=== PATIENT | male | born 1970 | race Caucasian/White ===

== ENCOUNTER 2020-09-06 12:20 | Outpatient (CLI) | payer OTHER, SELFPAY | END 2020-09-06 12:21 | disposition home or self-care (01) | PROVIDERS: PCP Family Medicine; Visit Provider Family Medicine | DX: H93.19 Tinnitus, unspecified ear (principal) | CPT/HCPCS: 92557; 92567 ==

== ENCOUNTER 2022-05-16 11:30 | Emergency (ER) | payer OTHER, SELFPAY ==
[2022-05-16 11:37] VITALS: BP 144/84; PULSE 72; RESP 18; TEMP 36.3; O2SAT 98
--- NOTE | 2022-05-16 12:29 | ED.URI ---
HPI - URI/Sore Throat General Chief Complaint: Upper Respiratory Infection Stated Complaint: Sore Throat Source: patient Mode of arrival: ambulatory History of Present Illness HPI Narrative: This is a 51-year-old male who presented to urgent care with complaints of a sore throat that started on Saturday patient describes a sore throat as razor blades cutting his throat if he swallowed or ate his food. Patient did not do anything at home to relieve his symptoms. The patient denies SOB, CP, palpitation, extremity numbness, lightheadedness, dizziness, constipation, diarrhea, chills, or fever. Related Data Home Medications Medication Instructions Recorded Confirmed aspirin 81 mg tablet,delayed 81 mg PO DAILY 06/08/19 05/16/22 release vit C 250 mg-vit E 90 mg-zinc 40 1 tablet PO BID 06/08/19 05/16/22 mg-copper 1 [id number] capsule (PreserVision AREDS-2) Allergies Allergy/AdvReac Type Severity Reaction Status Date / Time No Known Allergies Allergy Verified 05/16/22 11:41 Review of Systems Review of Systems: A 14 organ system Review of Systems was performed and pertinent positives included in the HPI, otherwise remaining ROS is negative. [facility] Family History Family History Mother Cerebrovascular accident Other Diabetes mellitus Family history of cardiovascular disease Hypertension Social History Social History Social History: Smoking packs per day: 1 Smoking cigarettes per day: 20.0 Years smoked: 24 Smoking pack-years: 24.00 Smoking status: Former smoker Tobacco type: cigarettes Second hand tobacco smoke exposure: No Smoking end date: 08/05/13 Alcohol intake: current Drinks per week: 10 Substance use: never Substance use type: does not use Gender identity (if verbalized by the patient): Male Sexual Orientation (if Verbalized by the Patient): Straight or Heterosexual Exam Narrative: GENERAL: This is a well-nourished, well-developed patient, in no apparent distress. HEAD: normocephalic, atraumatic. EYES: PERRL. Sclera clear/white. Vision is grossly intact. EARS: External ears normal, auditory canals clear and without drainage, TMs normal without perforation. Hearing grossly intact. NOSE: External nose normal with no obvious nasal discharge, nares without redness, no rhinorrhea. THROAT: Mucous membranes moist, posterior pharynx with edema erythema and a large tonsil NECK: Neck supple, non-tender without lymphadenopathy, masses or thyromegaly. CARDIOVASCULAR: Regular rate and rhythm without murmurs, gallops, or rubs. RESPIRATORY: Clear to auscultation. Breath sounds equal bilaterally. No wheezes, rales, or rhonchi. GASTROINTESTINAL: Abdomen soft, non-tender, nondistended. Bowel sounds are active. No hepato-splenomegaly, or palpable masses. No guarding. SKIN: warm, intact with no suspicious lesions or rash, good texture and turgor. NEURO: awake, alert, and oriented to person, place and time. There were no obvious focal neurologic abnormalities. EXTREMITIES: Normal range of motion. No edema. No calf tenderness. Course Course Emergency Course: Patient will discharge home with Augmentin for the treatment of pharyngitis and throat culture sent Level of Care: Express Care Visit Vital Signs Vital signs: Vital Signs Temperature 97.3 F L 05/16/22 11:37 Pulse Rate 72 05/16/22 11:37 Respiratory Rate 18 05/16/22 11:37 Blood Pressure 144/84 H 05/16/22 11:37 Pulse Oximetry 98 05/16/22 11:37 Oxygen Delivery Room Air 05/16/22 11:37 Temperature 97.3 F L 05/16/22 11:37 Pulse Rate 72 05/16/22 11:37 Respiratory Rate 18 05/16/22 11:37 Blood Pressure 144/84 H 05/16/22 11:37 Pulse Oximetry 98 05/16/22 11:37 Oxygen Delivery Room Air 05/16/22 11:37 MDM - URI/Sore Throat Differential Diagnosis Differential d
== END 2022-05-16 12:32 | disposition home or self-care (01) ==
PROVIDERS: Emergency Provider Nurse Practitioner; PCP Family Medicine
DX: J02.9 Acute pharyngitis, unspecified (principal); Z87.891 Personal history of nicotine dependence
CPT/HCPCS: 87081; 87880; 99213; G0463

== ENCOUNTER 2022-12-05 08:43 | Emergency (ER) | payer OTHER, SELFPAY ==
[2022-12-05] VITALS (12 sets, daily range): BP systolic 164–189; BP diastolic 92–100; PULSE 66–82; RESP 16–21; TEMP 36.4; O2SAT 94–98
--- NOTE | ~2022-12-05 | XR_ITS ---
Clinical Indication: Hypertension, dizziness PA and lateral views of the chest: Comparison: None Findings: Calcified left upper lobe granuloma noted. The lungs are otherwise clear, without evidence of focal consolidation or pleural effusion. Cardiomediastinal silhouette is within normal limits. Paxton josselin and soft tissues are unremarkable. Impression: No significant abnormality seen. Reviewed, dictated and finalized at location . Impression: No significant abnormality seen.
--- NOTE | ~2022-12-05 | CT_ITS ---
Non-contrast Head CT History: Dizziness, ataxia Technique: Axial non-contrast imaging of the brain was performed. Dose reduction technique was used on this scan by utilizing automated exposure control and iterative reconstruction technique. The dose -length product (DLP) was 605.33 mGy-cm. Findings: There is no evidence of intracranial hemorrhage, mass lesion, or acute infarct. Brain par enchyma appears normal. The ventricles and subarachnoid spaces are normal in size. The calvarium ap pears normal. The visualized paranasal sinuses and mastoid air cells are clear. Impression: No significant abnormality seen. Reviewed, dictated and finalized at location . Impression: No significant abnormality seen.
--- NOTE | 2022-12-05 08:51 | ECG_ITS ---
Measurements Intervals [place] Rate: 78 P: 54 [place]: 169 QRS: 31 QRSD: 73 T: 70 QT: 361 QTc: 413 Interpretive Statements SINUS RHYTHM NORMAL ECG NO PREVIOUS ECG AVAILABLE FOR COMPARISON Electronically Signed On 12-05-2022 9:33:25 CDT by Edmond James D.O.
[2022-12-05 09:09] LABS: Basophils Percent Auto 0.6 % (0.2-1.2); Eosinophils Absolute Auto 0.1 K/mm3 (0-0.3); Eosinophils Percent Auto 1.9 % (0-4.4); Hematocrit 43.9 % (42.0-52.0); Hemoglobin 14.9 g/dL (14.0-18.0); Immature Granulocyte Absolute 0.01 K/mm3 (0.00-0.031); Immature Granulocyte Percent A 0.2 % (0-0.5); Immature Platelet Fraction Pct 4.9 % (0.9-11.2); Lymphocytes Absolute Auto 1.18 K/mm3 (0.9-3.2); Mean Corpuscular HGB Conc 33.9 g/dl (32-36); Mean Corpuscular Hemoglobin 31.2 pg (26-34); Mean Platelet Volume 10.2 fl (7.4-10.4); Monocytes Absolute Auto 0.3 K/mm3 (0.1-0.6); Monocytes Percent Auto 5.2 % (2.6-8.5); Neutrophils Absolute Auto 3.8 K/mm3 (1.3-6.7); Neutrophils Percent Auto 70.1 % (45.5-73.1); Platelet Count Result 140 k/mm3 (150-375); Red Blood Count 4.77 M/mm3 (4.6-6.20); Red Cell Distribution Width 12.1 % (11.5-14.5); White Blood Count 5.4 K/mm3 (4.5-10.0)
[2022-12-05 09:18] LABS: Alanine Aminotransferase 84 U/L (6-50); Albumin Level 4.8 g/dL (3.5-5.1); Alkaline Phosphatase 90 U/L (38-126); Anion Gap 9 mmol/L (8-16); Aspartate Amino Transferase 87 U/L (17-59); Bilirubin,Total 0.6 mg/dL (0.2-1.3); Blood Urea Nitrogen 14 mg/dL (9-20); Calcium 9.3 mg/dL (8.4-10.2); Carbon Dioxide 28 mmol/L (22-30); Chloride 101 mmol/L (98-107); Estimated CRCL calculation 158 ml/min; Estimated Glomerular Filt Rate > 60; Glucose 166 mg/dL (65-110); Lipase 168 U/L (23-300); Potassium 4.8 mmol/L (3.4-5.0); Sodium 138 mmol/L (137-145)
[2022-12-05 09:23] LABS: INR 0.9; Prothrombin Time 12.9 Seconds (11.1-14.7)
[2022-12-05 09:24] LABS: Partial Thromboplastin Time 29.8 SECONDS (22.3-36.8)
[2022-12-05 09:28] LABS: Troponin I < 0.012 ng/mL (0.000-0.034)
[2022-12-05] MEDS: LOSARTAN POTASSIUM 100 MG TABLET PO (09:51)
[2022-12-05] MEDS: MECLIZINE HCL 25 MG TABLET PO (09:51)
--- NOTE | 2022-12-05 10:51 | ED.DIZZY ---
HPI - Dizziness General Chief Complaint: Dizziness Stated Complaint: dizziness Time Seen by Provider: 12/05/22 08:50 History of Present Illness HPI Narrative: Patient presents with dizziness, he states that started about 630 this morning while he was at work, it almost feels like he is drunk and he is unable to walk without stumbling, it is much better when he sits down, no nausea or vomiting associated with this, no pain to his ears. He does state that he used to be in the [employer] and the feeling is kind of like that seasickness. No history of stroke, he has no difficulty or changes with his speech, no focal numbness or weakness. His blood pressure has also been high, he ran out of one of his blood pressure medications a few days ago and has been trying to get a refill of it. Related Data Home Medications Medication Instructions Recorded Confirmed aspirin 81 mg tablet,delayed 81 mg PO DAILY 06/08/19 12/04/22 release vit C 250 mg-vit E 90 mg-zinc 40 1 tablet PO BID 06/08/19 12/04/22 mg-copper 1 [id number] capsule (PreserVision AREDS-2) Allergies Allergy/AdvReac Type Severity Reaction Status Date / Time No Known Allergies Allergy Verified 12/05/22 08:52 Review of Systems Review of Systems: CONST: No fever. HEENT: No sore throat C/V: No chest pain RESP: No cough GI: No nausea/vomiting : No dysuria. M/S: No joint pain. SKIN: No rash. NEURO: [Dizziness without headache or focal numbness or weakness] PSYCH: [No depression] [facility] Past Medical History Medical History Diabetes Diabetes mellitus with nephropathy Dyslipidemia High cholesterol HTN (hypertension) Obesity BRITTNY (obstructive sleep apnea) Surgical History Surgical History H/O local excision of skin lesion Family History Family History Mother Cerebrovascular accident Other Diabetes mellitus Family history of cardiovascular disease Hypertension Social History Social History Social History: Smoking packs per day: 1 Smoking cigarettes per day: 20.0 Years smoked: 24 Smoking pack-years: 24.00 Smoking status: Former smoker Tobacco type: cigarettes Second hand tobacco smoke exposure: No Smoking end date: 08/05/13 Alcohol intake: current Drinks per week: 10 Alcohol use details: occasionally Substance use: never Substance use type: does not use Living arrangements: with family Occupation/Education: occupation Gender identity (if verbalized by the patient): Male Sexual Orientation (if Verbalized by the Patient): Straight or Heterosexual Spiritual care concerns: No Exam Narrative: EXAMINATION OF ORGAN SYSTEMS/BODY AREAS: Constitutional: Vital signs per nursing GENERAL:[No acute distress, non-toxic appearing.] HEAD: Normal with no signs of head trauma. EYES: EOMI, conjunctiva normal ENT: Hearing grossly intact LUNGS: Nonlabored breathing. HEART: [Regular rate and rhythm] ABD: [Soft], [nontender to palpation] EXT: Normal range of motion SKIN: [No rashes or lesions.] NEURO: [Alert and oriented x 3. No gross focal sensory or strength deficits.] Initial gait somewhat unsteady PSYCH: Normal affect Course Vital Signs Vital signs: Vital Signs Temperature 97.6 F 12/05/22 08:46 Pulse Rate 80 12/05/22 08:46 Respiratory Rate 16 12/05/22 08:46 Blood Pressure 189/99 H 12/05/22 08:46 Pulse Oximetry 98 12/05/22 08:46 Oxygen Delivery Room Air 12/05/22 08:46 Temperature 97.6 F 12/05/22 08:46 Pulse Rate 75 12/05/22 10:58 Respiratory Rate 18 12/05/22 10:58 Blood Pressure 164/92 H 12/05/22 10:58 Pulse Oximetry 97 12/05/22 10:58 Oxygen Delivery Room Air 12/05/22 08:46 MDM - Dizziness MDM Narrative Medical decision making narrativ
== END 2022-12-05 11:04 | disposition home or self-care (01) ==
PROVIDERS: Emergency Provider Emergency Medicine; PCP Family Medicine
DX: R42 Dizziness and giddiness (principal); I10 Essential (primary) hypertension; E11.21 Type 2 diabetes mellitus with diabetic nephropathy; E78.00 Pure hypercholesterolemia, unspecified; G47.33 Obstructive sleep apnea (adult) (pediatric); E66.9 Obesity, unspecified; Z68.37 Body mass index [BMI] 37.0-37.9, adult; Z87.891 Personal history of nicotine dependence; Z79.82 Long term (current) use of aspirin; Z79.85 Long-term (current) use of injectable non-insulin antidiabetic drugs
CPT/HCPCS: 36415; 70450; 71046; 80053; 83690; 84484; 85025; 85055; 85610; 85730; 93005; 99284; A9270

== ENCOUNTER 2023-02-07 12:15 | Outpatient (CLI) | payer OTHER, SELFPAY ==
--- NOTE | ~2023-02-07 | XR_ITS ---
Right wrist Technique: PA, oblique, lateral, and ulnar deviation views were obtained. Clinical History: Ganglion cyst Findings: No acute fracture or dislocation is seen. Osseous alignment is anatomic. Joint spaces are p reserved. Soft tissues are unremarkable. Impression: Unremarkable right wrist radiographs. Reviewed, dictated and finalized at location . Impression: Unremarkable right wrist radiographs.
== END 2023-02-07 12:16 | disposition home or self-care (01) ==
PROVIDERS: PCP Family Medicine; Visit Provider Physician Assistant
DX: R22.31 Localized swelling, mass and lump, right upper limb (principal); M67.439 Ganglion, unspecified wrist
CPT/HCPCS: 73110

== ENCOUNTER 2023-02-13 12:27 | Outpatient (CLI) | payer OTHER, SELFPAY ==
--- NOTE | ~2023-02-13 | US_ITS ---
EXAMINATION: US soft tissue UE RT DATE: 02/13/2023 12:55 INDICATION: Localized swelling, mass and lump, right wrist. TECHNIQUE: Multiple grayscale and Doppler ultrasound images of the right upper extremity were obtaine d. COMPARISON: Right wrist radiograph 02/07/2023 FINDINGS: An 8 x 6 x 8 mm ganglion cyst and a 7 x 5 x 6 mm ganglion cyst are connected by a thin comm unication in the dorsum of the wrist. IMPRESSION: 1. Ganglion cysts in the dorsum of the wrist in the patient's area of concern. Reviewed, dictated and finalized at location E.
== END 2023-02-13 12:28 | disposition home or self-care (01) ==
PROVIDERS: PCP Family Medicine; Visit Provider Physician Assistant
DX: M67.431 Ganglion, right wrist (principal)
CPT/HCPCS: 76882

== ENCOUNTER 2024-02-17 12:56 | Outpatient (CLI) | payer OTHER, SELFPAY ==
--- NOTE | ~2024-02-17 | CT_ITS ---
CT soft tissue neck w con Ordering provider: Matheus Cabello PA-C History: 53 years Male with . r/o abscess or other complications . Comparison: None. Technique: CT soft tissues neck was performed with contrast. . Automated exposure control and iterat blue reconstruction technique were employed. The dose-length product was 560.19 mGy-cm. 75 mL of Omnip aque 350 was given IV. Findings: LOWER HEAD: The visualized brain parenchyma, optic globes/orbits and mastoids are normal. The visua lized paranasal sinuses are well aerated. SALIVARY GLANDS: Normal. THYROID: Normal. SUPRAHYOID DEEP SPACES: Enlarged lymph nodes in the parapharyngeal area more on the left side measuri ng 1.3 x 1.4 cm. CAROTID ARTERIES: Normal. JUGULAR VEINS: Normal. TONSILS: The left tonsil is enlarged with area of calcification. No definite abscess formation is see n although hypodensity is seen in the mid tonsil which measures 6 mm and may be an early abscess.. ORAL CAVITY: Partially obscured by dental amalgam but normal as visualized. PHARYNX, LARYNX AND TRACHEA: Patent and normal. No prevertebral soft tissue swelling. SUPERFICIAL SOFT TISSUES: Normal. No lymphadenopathy or neck mass. Small lymph nodes are seen bilater ally. THORACIC INLET/VISUALIZED UPPER CHEST: Normal. SKELETAL: Age appropriate degenerative changes. IMPRESSION: 1. Enlarged left tonsil with possible small abscess. Follow-up advised. 2. Enlarged lymph nodes in the left and right parapharyngeal spaces. Reviewed, dictated and finalized at location A.
== END 2024-02-17 12:57 | disposition home or self-care (01) ==
PROVIDERS: PCP Family Medicine; Visit Provider Physician Assistant
DX: K13.79 Other lesions of oral mucosa (principal); J35.1 Hypertrophy of tonsils; J02.9 Acute pharyngitis, unspecified
CPT/HCPCS: 70491; Q9967

== ENCOUNTER 2024-05-12 12:49 | Outpatient (CLI) | payer OTHER, SELFPAY ==
--- NOTE | ~2024-05-12 | XR_ITS ---
XR shoulder LT min 2V Ordering provider: Kt Sheldon MD History: . M25.511 - Pain in right shoulder . Comparison: None. 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 Small bony fragme nt seen near to the inferior glenoid may be old or acute fracture. JOINT SPACES: The acromioclavicular joint is normal. The glenohumeral joint is normal. SOFT TISSUES: Normal. IMPRESSION: Small bony fragment near to the inferior glenoid may be a small chip fracture. Clinical correlation a dvised. 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 Reviewed, dictated and finalized at location A. IMPRESSION: Small bony fragment near to the inferior glenoid may be a small chip fracture. Clinical correlation advised. 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
--- NOTE | ~2024-05-12 | XR_ITS ---
XR shoulder RT min 2V Ordering provider: Kt Sheldon MD History: . M25.511 - Pain in right shoulder . Comparison: June 21, 2017 FINDINGS: BONES: No acute fracture or dislocation. JOINT SPACES: The acromioclavicular joint shows mild osteoarthritic changes. The glenohumeral joint i s normal. SOFT TISSUES: Normal. IMPRESSION: No acute osseous abnormality right shoulder. Reviewed, dictated and finalized at location A.
== END 2024-05-12 12:50 | disposition home or self-care (01) ==
PROVIDERS: PCP Family Medicine; Visit Provider Family Medicine
DX: M85.08 Fibrous dysplasia (monostotic), other site (principal); M25.511 Pain in right shoulder; M25.512 Pain in left shoulder
CPT/HCPCS: 73030

== ENCOUNTER 2024-12-15 10:04 | Outpatient (CLI) | payer OTHER, SELFPAY ==
--- NOTE | ~2024-12-15 | XR_ITS ---
3 VIEWS LUMBAR SPINE Ordering provider: Felicita Garza PA-C History: . M54.50 - Low back pain, unspecified, NO INJURY . Comparison: None. FINDINGS: VERTEBRAL BODIES: No visible fracture or subluxation. Degenerative changes of the spine. Mild dextros coliosis. DISK SPACES: Normal. SOFT TISSUES: Normal. IMPRESSION: No acute osseous abnormality lumbar spine. Reviewed, dictated and finalized at location A.
--- OUTSIDE RECORDS SUMMARY | 2024-12-15 10:19 | XMS_ITS | Continuity of Care Document ---
Author Name [facility] Organization [facility] Care Team Providers Care Pastry Artist Name Role Phone [facility] Unavailable Unavailable Problems Combined list of problems from Department of Defense and Veterans Affairs facilities. It does not include entries that were removed or entered in error. Problem Status Onset Date Problem Type Date of Resolution Comments Source IMPAIRED FASTING GLUCOSE Active Condition DoD visit for: services physical chcf Active Condition DoD ASTIGMATISM - REGULAR Active Condition DoD Anticipatory Guidance: Inadequate Physical Activity Active Condition DoD Body Mass Index Active Condition DoD Dietary Counseling Pertaining To Hypercholesterolemia Active Condition DoD Blood Pressure Isolated Elevated Active Condition DoD visit for: administrative purpose Active Condition Do D Vaccines Prophylactic Need Against DTP Active Condition DoD Patient Education - Self-Examination Of Testes Inactive Condition DoD Patient Education - Dietary Active Condition DoD HYPERLIPIDEMIA Active Condition DoD tobacco use Active Condition DoD visit for: services physical Active Condition DoD 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 Continue current regimen and F/U with PCM for routine monitoring, particularly with respect to LDL goal. Okay to participate in upcoming PRT cycle. DoD visit for: issue repeat prescription for medication Inactive Condition DoD NICOTINE DEPENDENCE - IN REMISSION Active Condition Rx given of Nicoderm 14mg topical patch apply qd x 14days & continue Zyban 150mg PO BID DoD smoking cigarettes Active Condition DoD NICOTINE DEPENDENCE - CONTINUOUS Active Condition Continue Zyban 150mg Po BID; will start Pt. on Step#2 program of Nicoderm topical 21mg apply patch QD x 2 weeks (disp#14 w/o refills) DoD Need For Vaccination Yellow Fever Inactive Condition DoD NORMAL ROUTINE OPHTHALMOLOGICAL EXAM Inactive Condition DoD Vaccines Prophylactic Need Against Influenza Inactive Condition Do D DERMATOMYCOSIS Active Condition Tenia infection DoD visit for: screening exam pulmonary tuberculosis Active Condition DoD Need For Vaccination Typhoid Inactive Condition DoD DERMATOPHYTOSIS NAILS ONYCHOMYCOSIS Inactive Condition DoD HISTOPLASMOSIS OCULAR Active Condition DoD ASTIGMATISM Active Condition DoD NEW PATIENT OPHTHALMOLOGICAL EXAM Inactive Condition DoD REFRACTIVE ERROR - HYPERMETROPIA Active Condition [facility] Patient Counseling: Inactive Condition D oD UPPER RESPIRATORY INFECTION Inactive Condition Sudafed and Motrin not dispensed, Rx from another pt as per previous note. Was dispensed Deconsal II, Tessalon and Afrin vs Afrin, Ibu and Sudafed. DoD visit for: administrative purpose Active Condition Consu lt for Vasectomy submitted via [facility] 1 unable to send through [facility] II. DoD Medications Combined list of outpatient medications from Department of Defense and Veterans Affairs facilities.Medications provided include 1) outpatient medications from the last 15 months, and 2) patient-reported medications. Medication Details Route Status Patient Instructions Prescription Expires Prescription Number Last Dispense Date Ordering Provider Order Date Order Qty Source amLODIPine 10 mg tablet See Instruct ions, # 90 EA, 1 total refill(s ), Acute Complet ed 04/29/2023 3 2022 90.0 Ambulat ory Pharmac y amLODIPine 10 mg tablet 10 mg, Oral, Daily, # 90 EA, 3 total refill(s ), Hard Stop Oral (given by mouth) Complet ed 06/16/2024 4 2023 90.0 Ambulat ory Pharmac y atorvastati n 40 mg tablet 40 mg, Oral, Daily, # 90 EA, 3 total refill(s ), Hard Stop Oral (given by mouth) Complet ed 06/16/2024 4 2023 90.0 Ambulat ory Pharmac y atorvastati n 40 mg tablet See Instruct ions, # 90 EA, 1 total refill(s ), Acute Complet ed 04/29/2023 3 2022 90.0 Ambulat ory Pharmac y Dulaglutide 6 mg/mL, Injection, 0.5mL Autoinjecto r refriger ate 11/18/2024 [id number] 4 2023 6 [facility] Yunior BAZAN [place] ezetimibe 10 mg oral tablet TAKE ONE TABLET DAILY, # 90 EA, 3 total refill(s ), Acute Complet ed 06/07/20232022 90.0 Ambulat ory Pharmac y ezetimibe 10 mg tablet See Instruct orquidea, # 90 EA, 1 total refill(s ), Acute Complet ed 04/29/2023 3 2022 90.0 Ambulat ory Pharmac y ezetimibe 10 mg tablet 10 mg, Oral, Daily, # 90 EA, 3 total refill(s ), Hard Stop Oral (given by mouth) Complet ed 06/16/2024 4 2023 90.0 Ambulat ory Pharmac y losartan 100 mg tablet See Instruct ions, # 90 EA, 1 total refill(s ), Acute Complet ed 04/29/2023 3 2022 90.0 Ambulat ory Pharmac y losartan 100 mg tablet 100 mg, Oral, Daily, # 90 EA, 3 total refill(s ), Hard Stop Oral (given by mouth) Complet ed 06/16/2024 4 2023 90.0 Ambulat ory Pharmac y metFORMIN 500 mg oral tablet TAKE TWO TABLETS BY MOUTH TWICE A DAY, # 360 EA, 3 total refill(s ), Acute Complet ed 04/29/2023 2 2022 360.0 Ambulat ory Pharmac y metoprolol succinate ER 25 mg/24 hour tablet See Instruct ions, # 90 EA, 1 total refill(s ), Acute Complet ed 08/22/2023 3 2023 90.0 Ambulat ory Pharmac y metoprolol succinate ER 25 mg/24 hour tablet 25 mg, # 45 EA, 3 total refill(s ), Hard Stop Complet ed 06/16/2024 3 2023 45.0 Ambulat ory Pharmac y SPIKEVAX [id number] (COVID vacc 2022- (12 yrs and up) XBB.1.5 (andusomera n)/PF), 50 MCG/0.5, VIAL, INTRAMUSC, MODERNA US, INC, .5 ml VIAL Active [id number] 4 2023 0.5 Pharmac y Data Transac tion Service Facilit y Trulicity Pen 3 mg/0.5 mL [4EA=2mL] See Instruct orquidea, SubCutan eous, every week, # 6 mL, 1 total refill(s ), Hard Stop Notes: refriger ate SubCut aneous (under the skin) Discont inued 01/06/2024 4 2023 6.0 Ambulat ory Pharmac y Trulicity Pen 4.5 mg/0.5 mL [4EA=2mL] See Instruct ions, # 6 mL, 1 total refill(s ), Hard Stop Notes: refriger ate Complet ed 06/09/2024 4 2023 6.0 Ambulat ory Pharmac y Trulicity Pen 4.5 mg/0.5 mL [4EA=2mL] See dose instruct ions in comments , # 2 mL, 5 total refill(s ), Acute Complet ed 12/20/2023 3 2023 2.0 Ambulat ory Pharmac y Allergies, Adverse Reactions, Alerts Combined list of allergies from Department of Defense and Veterans Affairs facilities. It does not include entries that were removed or entered in error. Substance Category Reaction Severity Reaction type Status Date Reported Comments Source No Known Allergies Drug allergy (disorder) active 8 [facility] NO KNOWN ALLERGIES Propensity to adverse reactions to drug Active Unknown Organization Immunizations Combined list of available immunizations from the Department of Defense and Veterans Affairs facilities. Immunization Series Date Given Administered By Site Reaction Lot Number CVX Code Drug Superintendent Distribution Status Comments Source COVID-19, mRNA, LNP-S, PF, 100 mcg or 50 mcg dose 2021 ALUL, () Not Given COVID-19, mRNA, LNP-S, PF, 100 mcg or 50 mcg dose [facility] COVID-19 (MODERNA), MRNA, LNP-S, PF, 100 MCG/0.5 ML DOSE 3 2020 207 complet ed MOD; [id number]; 2 [facility] COVID-19 (MODERNA), MRNA, LNP-S, PF, 100 MCG/0.5 ML DOSE 2 2020 207 complet ed MOD; [id number]; 1 [facility] COVID-19 (MODERNA), MRNA, LNP-S, PF, 100 MCG/0.5 ML DOSE 1 2020 207 complet ed MOD; [id number]; 1 [facility] influenza virus vaccine, whole virus 2008 zzLef t Arm [id number] complet ed influenza virus vaccine, whole virus 05/24/09 Given Ambulat ory Pharmac y influenza virus vaccine, whole virus 1 2008 Unknown, Provider [id number] 16 [employer] ([employer]) complet ed influenza virus vaccine, whole virus DoD tetanus, diphtheria, acellular pertu is 2007 zzLef t Arm [id number] Unknown complet ed tetanus, diphtheri a, acellular pertussis 06/01/08 Given Ambulat ory Pharmac y influenza virus vaccine, live 2007 zzLef t Arm [id number] [employer] complet ed influenza virus vaccine, live 06/01/08 Given Ambulat ory Pharmac y tuberculin skin test; old tuberculin, multipuncture device 1 2007 SATHYA LEWIS [id number] Other (OTH) complet ed tuberculi n skin test; old tuberculi n, multipunc ture device DoD influenza virus vaccine, live, attenuated, for intranasal use 1 2007 SATHYA LEWIS [id number] [employer]. (MED) complet ed influenza virus vaccine, live, attenuate d, for intranasa l use DoD tetanus toxoid, reduced diphtheria toxoid, and acellular pertu is vaccine, adsorbed 1 2007 SATHYA LEWIS [id number] Other (OTH) complet ed tetanus toxoid, reduced diphtheri a toxoid, and acellular pertussis vaccine, adsorbed DoD yellow fever vaccine 2005 zzLef t Arm [id number] sanofi pasteur complet ed yellow fever vaccine 05/07/06 Given Ambulat ory Pharmac y tuberculin purified protein derivative 2005 zzLef t Arm [id number] [facility] complet ed tuberculi n purified protein derivativ e 05/07/06 Given Ambulat ory Pharmac y yellow fever vaccine 1 2005 LUIS ALBERTO BEGUM [id number] Sanofi Pasteur ([facility]) complet ed yellow fever vaccine DoD tuberculin skin test; purified protein derivative solution, intradermal 1 2005 LUIS ALBERTO BEGUM [id number] [place] (PD) complet ed tuberculi n skin test; purified protein derivativ e solution, intraderm al DoD influenza virus vaccine,split 2004 Body, whole [id number] [employer] complet ed influenza virus vaccine,s plit 06/07/05 Given Ambulat ory Pharmac y influenza virus vaccine, split virus (incl. purified surface antigen)-reti red CODE 1 2004 [id number] 15 Merck (MSD) complet ed influenza virus vaccine, split virus (incl. purified surface antigen)- retired CODE DoD influenza virus vaccine,split 2004 UNK 15 Unknown complet ed influenza virus vaccine,s plit 02/17/05 Given Ambulat ory Pharmac y influenza virus vaccine, split virus (incl. purified surface antigen)-reti red CODE 0 2004 UNK 15 Unknown (UNK) comple t ed influenza virus vaccine, split virus (incl. purified surface antigen)- retired CODE DoD influenza virus vaccine,split 2004 [id number] sanofi pasteur complet ed influenza virus vaccine,s plit 08/20/04 Given Ambulat ory Pharmac y influenza virus vaccine, split virus (incl. purified surface antigen)-reti red CODE 0 2004 Unknown, Provider [id number] 15 Sanofi Pasteur ([facility]) complet ed influenza virus vaccine, split virus (incl. purified surface antigen)- retired CODE DoD typhoid Vi capsular polysaccharid e vac 2003 UNK 101 Unknown complet ed typhoid Vi capsular polysacch aride vac 10/27/03 Given Ambulat ory Pharmac y typhoid vaccine, inactivated 2003 UNKNOWN 101 Unknown complet ed typhoid vaccine, inactivat ed 10/27/03 Given Ambulat ory Pharmac y typhoid vaccine, parenteral, other than acetone-kille d, dried 0 2003 Unknown, Provider UNKNOWN 41 Unknown (UNK) complet ed typhoid vaccine, parentera l, other than acetone-k illed, dried DoD typhoid Vi capsular polysaccharid e vaccine 1 2003 UNK 101 Unknown (UNK) comple t ed typhoid Vi capsular polysacch aride vaccine DoD typhoid vaccine, inactivated 2000 UNKNOWN 101 Unknown complet ed typhoid vaccine, inactivat ed 08/09/00 Given Ambulat ory Pharmac y typhoid vaccine, parenteral, other than acetone-kille d, dried 3 2000 Unknown, Provider UNKNOWN 41 Unknown (UNK) complet ed typhoid vaccine, parentera l, other than acetone-k illed, dried DoD influenza virus vaccine,split 1999 UNKNOWN 15 Unknown complet ed influenza virus vaccine,s plit 07/05/00 Given Ambulat ory Pharmac y influenza virus vaccine, split virus (incl. purified surface antigen)-reti red CODE 0 1999 Unknown, Provider UNKNOWN 15 Unknown (UNK) complet ed influenza virus vaccine, split virus (incl. purified surface antigen)- retired CODE DoD influenza virus vaccine, whole virus 1998 [id number] 16 sanofi pasteur complet ed influenza virus vaccine, whole virus 06/19/99 Given Ambulat ory Pharmac y influenza virus vaccine, whole virus 0 1998 Unknown, Provider [id number] 16 Sanofi Pasteur ([facility]) complet ed influenza virus vaccine, whole virus DoD influenza virus vaccine, whole virus [id number] Unknown complet ed influenza virus vaccine, whole virus 05/31/98 Given Ambulat ory Pharmac y influenza virus vaccine, whole virus 0 1997 Unknown, Provider [id number] Other (OTH) complet ed influenza virus vaccine, whole virus DoD hepatitis A adult vaccine 1997 UNKNOWN 52 Unknown complet ed hepatitis A adult vaccine 12/21/97 Given Ambulat ory Pharmac y hepatitis A vaccine, adult dosage 0 1997 Unknown, Provider UNKNOWN 52 Unknown (UNK) complet ed hepatitis A vaccine, adult dosage DoD tetanus-dipht h toxoids (Td) adult/adol 1997 UNKNOWN 09 Unknown complet ed tetanus-d iphth toxoids (Td) adult/ado l 12/09/97 Given Ambulat ory Pharmac y tetanus and diphtheria toxoids, adsorbed, preservative free, for adult use (2 Lf of tetanus toxoid and 2 Lf of diphtheria toxoid) 1 1997 Unknown, Provider UNKNOWN 09 Unknown (UNK) complet ed tetanus and diphtheri a toxoids, adsorbed, preservat blue free, for adult use (2 Lf of tetanus toxoid and 2 Lf of diphtheri a toxoid) DoD tetanus-dipht h toxoids (Td) adult/adol 1997 UNKNOWN 09 Unknown complet ed tetanus-d iphth toxoids (Td) adult/ado l 10/09/97 Given Ambulat ory Pharmac y typhoid vaccine, inactivated 1997 UNKNOWN 101 Unknown complet ed typhoid vaccine, inactivat ed 10/09/97 Given Ambulat ory Pharmac y tetanus and diphtheria toxoids, adsorbed, preservative free, for adult use (2 Lf of tetanus toxoid and 2 Lf of diphtheria toxoid) 0 1997 Unknown, Provider UNKNOWN 09 Unknown (UNK) complet ed tetanus and diphtheri a toxoids, adsorbed, preservat blue free, for adult use (2 Lf of tetanus toxoid and 2 Lf of diphtheri a toxoid) DoD typhoid vaccine, parenteral, other than acetone-kille d, dried 0 1997 Unknown, Provider UNKNOWN 41 Unknown (UNK) complet ed typhoid vaccine, parentera l, other than acetone-k illed, dried DoD influenza virus vaccine,split 1996 UNKNOWN 15 Unknown complet ed influenza virus vaccine,s plit 05/29/97 Given Ambulat ory Pharmac y influenza virus vaccine, split virus (incl. purified surface antigen)-reti red CODE 0 1996 Unknown, Provider UNKNOWN 15 Unknown (UNK) complet ed influenza virus vaccine, split virus (incl. purified surface antigen)- retired CODE DoD hepatitis A adult vaccine 1996 UNKNOWN 52 Unknown complet ed hepatitis A adult vaccine 05/10/97 Given Ambulat ory Pharmac y hepatitis A vaccine, adult dosage 1 1996 Unknown, Provider UNKNOWN 52 Unknown (UNK) complet ed hepatitis A vaccine, adult dosage DoD yellow fever vaccine 1994 UNKNOWN 37 Unknown complet ed yellow fever vaccine 03/18/95 Given Ambulat ory Pharmac y yellow fever vaccine 1 1994 Unknown, Provider UNKNOWN 37 Unknown (UNK) complet ed yellow fever vaccine DoD yellow fever vaccine 1994 UNKNOWN 37 Unknown complet ed yellow fever vaccine 11/16/94 Given Ambulat ory Pharmac y yellow fever vaccine 0 1994 Unknown, Provider UNKNOWN 37 Unknown (UNK) complet ed yellow fever vaccine DoD typhoid vaccine, inactivated 1994 UNKNOWN 101 Unknown complet ed typhoid vaccine, inactivat ed 10/18/94 Given Ambulat ory Pharmac y typhoid vaccine, parenteral, other than acetone-kille d, dried 2 1994 Unknown, Provider UNKNOWN 41 Unknown (UNK) complet ed typhoid vaccine, parentera l, other than acetone-k illed, dried DoD typhoid vaccine, inactivated 1994 UNKNOWN 101 Unknown complet ed typhoid vaccine, inactivat ed 08/23/94 Given Ambulat ory Pharmac y measles/mumps /rubella virus vaccine 1994 UNKNOWN 03 Unknown complet ed measles/m umps/rube lla virus vaccine 08/23/94 Given Ambulat ory Pharmac y measles, mumps and rubella virus vaccine 1 1994 Unknown, Provider UNKNOWN 03 Unknown (UNK) complet ed measles, mumps and rubella virus vaccine DoD typhoid vaccine, parenteral, other than acetone-kille d, dried 1 1994 Unknown, Provider UNKNOWN 41 Unknown (UNK) complet ed typhoid vaccine, parentera l, other than acetone-k illed, dried DoD measles/mumps /rubella virus vaccine 1994 UNKNOWN 03 Unknown complet ed measles/m umps/rube lla virus vaccine 08/08/94 Given Ambulat ory Pharmac y measles, mumps and rubella virus vaccine 1 1994 Unknown, Provider UNKNOWN 03 Unknown (UNK) complet ed measles, mumps and rubella virus vaccine DoD Encounters Combined list of: 1) Encounters from Department of Veterans Affairs facilities going backup to the last 18 months, not all VA inpatient encounters are included; 2) Encounters from the Department of Defense facilities going backup to 280 months. Location Location Details Encounter Type Encounter Number Reason For Visit Attending Provider ADM Date DC Date Status Disposition Source [facility]) OUTPATIENT [id number] referra ALISA Martínez 10/10 Released w/o Limitations [facility]) [facility]) OUTPATIENT [id number] ALISA POWELL 01/05 Released w/o Limitations [facility]) [facility]) OUTPATIENT [id number] [facility] EYE EXAM CAMMIE, HUI NMN 06/24 Released w/o Limitations [facility](Opt ometry [facility]) [facility] OUTPATIENT [id number] Toe problem s SONIDO CRANE 10/17 Released w/o Limitations [facility] ) [facility](Immuniz [facility]ions [facility]) OUTPATIENT [id number] ppd typ GAGNONBETTY Vivien 10/26 Released w/o Limitations [facility](Imm unizati ons [facility] ) [facility]Immuniz [facility]ions [facility]) OUTPATIENT [id number] ppd check OWEN MCCLAIN E 10/28 Released w/o Limitations [facility](Imm unizati ons [facility] ) [facility]) OUTPATIENT [id number] spot on lt JEWEL Mcneil 01/11 Released w/o Limitations [facility](Monse [facility] ) [facility](Hygiene [facility]) DENTAL [id number] NONA LAWRENCE I 01/30 Released w/o Limitations [facility](Hyg iene [facility] ) [facility](Immuniz ations [facility]) OUTPATIENT [id number] flu mist OWEN MCCLAIN E 06/07 Released w/o Limitations [facility](Imm unizati ons [facility] ) [facility]) OUTPATIENT [id number] eyexam CAMMIE, HUI NMN 12/19 Released w/o Limitations [facility](Opt ometry [place]) [facility](Immuniz ations [facility]) OUTPATIENT [id number] ppd/yf LUIS ALBERTO BEGUM 05/07 Released w/o Limitations [facility](Imm unizati ons [facility] ) [facility]) OUTPATIENT [id number] tobacco cessati on rx PICIO, SONIDO Miranda 06/10 Released w/o Limitations [facility]) OUTPATIENT [id number] f/u PICIO, SONIDO Miranda 06/13 Released w/o Limitations [facility] ) [facility]) OUTPATIENT [id number] med refill for TC PICIO, SONIDO Miranda 06/17 Released w/o Limitations [facility]) OUTPATIENT [id number] REFILL ON MEDS LADIKOS SHANEKA Dominique 07/17 Released w/o Limitations [facility] ) [facility]) OUTPATIENT [id number] med refill JEWEL ROLDAN 08/20 Released w/o Limitations [facility]) OUTPATIENT [id number] LONA Antonio 09/16 Released w/o Limitations [facility] ) Sathya Medrano [facility]) OUTPATIENT [id number] eye problem s PEFRENETTA Sosa 10/15 Immediate Referral Sathya Fox Mitchell [facility]( [facility]) Sathya Medrano [facility]) OUTPATIENT [id number] AUZL SAN 10/15 Released w/o Limitations Sathya Medrano [facility]( Ophthal [facility]) Sathya Medrano [facility]) TELE CONSULT [id number] AZUL Yang 01/14 Sathya Medrano [facility]( [facility]) Sathya Medrano [facility]) TELE CONSULT [id number] AZUL SAN 02/08 Sathya [facility]( [facility] mology [facility]) [facility]) OUTPATIENT [id number] pain in both feet/st abbing pain in bottom of rt foot ALISA GLEASON 05/04 Released w/o Limitations [facility] [place]( Family Practic e [facility]) [facility] [id number] PLANTAR FASCIIT IS CEDRICK MARAVILLA 05/19 Released w/o Limitations [facility] [place]( Podiatr y Clinic [facility]) [facility](Mi litary Sick Call [facility]) OUTPATIENT [id number] pha ARNALDO CAO 06/01 Released w/o Limitations [facility]( Militar y Sick Call [facility]) [facility](Im munizatio n [facility]) OUTPATIENT [id number] FLUMIST , TDAP, TST DOLAK, LELAND W 06/01 Released w/o Limitations [facility] [place]( Immuniz ation [facility]) [facility] [place]) OUTPATIENT [id number] PHA ZACK BRIAN 06/01 Released w/o Limitations [facility]( Hearing Conserv ation Clinic) [facility] OUTPATIENT [id number] F/U INSERTS CEDRICK MARAVILLA 06/23 Released w/o Limitations [facility] [place]( Podiatr y Clinic [facility]) [facility] [place]([facility]) OUTPATIENT [id number] had labs for PHA high cholest jessika ALISA GLEASON 06/23 Released w/o Limitations [facility] [place]( Family Practic e Clinic) [facility] [place](Nu trition [facility]) OUTPATIENT [id number] HYPERLI PIDEMIA EFRAIN ISIDRO 06/25 Released w/o Limitations [facility]( Nutriti on Clinic [facility]) [facility](In ternal Medicine 200H) TELE CONSULT [id number] request ing urgent care / ANAMIKA QURESHI 02/10 Released to Self Care [facility]( Interna l Medicin e [facility]H) [facility](Im munizatio n Clinic [facility]) OUTPATIENT [id number] LAN Villatoro 05/24 Released w/o Limitations [facility]( [facility]) [address] [place] [address])(Opt ometry) OUTPATIENT [id number] eye exam [phone] CEDRICK SHAIKH 06/02 Released w/o Limitations [address] [place] [address])(O ptometr y) [address] [place] [address])(War rior Op Med Cln Tm A Ad) TELE CONSULT [id number] [facility] PH[facility] cad tlt [phone] KENNEDY, KATARZYNA R 08/[address] [place] [address])(W arrior Op Med Cln Tm A Ad) [address] [place] [address])(War rior Op Med Cln Tm A Ad) OUTPATIENT [id number] retirem ent physica l [phone] BRYANT OLIVERA 08/16 Released w/o Limitations [address] [place] [address])(W arrior Op Med Cln Tm A Ad) [facility] Outpatient Encounter [id number] 6 01/29 [facility] Procedures Combined list of: 1) Procedures from Department of Veterans Affairs facilities going back up to thelast 18 months, not all VA non-surgical procedures are included; 2) All procedures from the Department of Defense facilities. Procedure Procedure Type Code Date Perfomer Comments Sourc e No data available for this section Ambulatory Pharmacy TELE ASSESS & MGT SRV PROV QUAL NONPHYS HLTH CARE PRO TO EST PAT,PARENT,GUARD NOT ORIG REL ASSESS & MGT SRV PROV W/IN PREV 7 DAYS NOR LEAD ASSESS & MGT SRV/PX W/IN NXT 24H/SOON APT; 11-20 MIN MED DIS 08/09/2010 [facility]D FITTING OF SPECTACLES, EXCEPT FOR APHAKIA; MONOFOCAL 06/02/2010 [facility]D IMMUNIZATION ADMINISTRATION (INCLUDES PERCUTANEOUS, INTRADERMAL, SUBCUTANEOUS, OR INTRAMUSCULAR INJECTIONS); 1 VACCINE (SINGLE OR COMBINATION VACCINE/TOXOID) 05/24/2009 DoD EDUCATIONAL SUPPLIES, SUCH BOOKS, TAPES, AND PAMPHLETS, FOR THE PATIENT'S EDUCATION AT COST TO PHYSICIAN OR OTHER QUALIFIED HEALTH ADULT SECONDARY EDUCATION INSTRUCTOR 06/25/2008 DoD FOOT INSERT, REMOVABLE, MOLDED TO PATIENT MODEL, LONGITUDINAL/ METATARSAL SUPPORT, EACH 06/23/2008 DoD IMMUNIZATION ADMINISTRATION BY INTRANASAL OR ORAL ROUTE; 1 VACCINE (SINGLE OR COMBINATION VACCINE/TOXOID) 06/01/2008 DoD FOOT INSERT, REMOVABLE, MOLDED TO PATIENT MODEL, LONGITUDINAL ARCH SUPPORT, EACH 05/19/2008 [facility] FUNDUS PHOTOGRAPHY WITH INTERPRETATION AND REPORT 10/16/2007 [facility] BLOOD PRESSURE MEASURED (CKD)(DM) 09/04/2006 [facility] BLOOD PRESSURE MEASURED (CKD)(DM) 08/26/2006 DoD EDUCATIONAL SUPPLIES, SUCH BOOKS, TAPES, AND PAMPHLETS, FOR THE PATIENT'S EDUCATION AT COST TO PHYSICIAN OR OTHER QUALIFIED HEALTH ADULT SECONDARY EDUCATION INSTRUCTOR 06/13/2006 DoD EDUCATIONAL SUPPLIES, SUCH BOOKS, TAPES, AND PAMPHLETS, FOR THE PATIENT'S EDUCATION AT COST TO PHYSICIAN OR OTHER QUALIFIED HEALTH ADULT SECONDARY EDUCATION INSTRUCTOR 06/06/2006 [facility] BLOOD PRESSURE MEASURED (CKD)(DM) 05/10/2006 DoD EDUCATIONAL SUPPLIES, SUCH BOOKS, TAPES, AND PAMPHLETS, FOR THE PATIENT'S EDUCATION AT COST TO PHYSICIAN OR OTHER QUALIFIED HEALTH ADULT SECONDARY EDUCATION INSTRUCTOR 05/07/2006 DoD FITTING OF SPECTACLES, EXCEPT FOR APHAKIA; MONOFOCAL 12/19/2005 DoD EDUCATIONAL SUPPLIES, SUCH BOOKS, TAPES, AND PAMPHLETS, FOR THE PATIENT'S EDUCATION AT COST TO PHYSICIAN OR OTHER QUALIFIED HEALTH ADULT SECONDARY EDUCATION INSTRUCTOR 06/07/2005 DoD SKIN TEST; UNLISTED ANTIGEN, EACH 10/29/2003 DoD IMMUNIZATION ADMINISTRATION (INCLUDES PERCUTANEOUS, INTRADERMAL, SUBCUTANEOUS, OR INTRAMUSCULAR INJECTIONS); EACH ADDITIONAL VACCINE (SINGLE OR COMBINATION VACCINE/TOXOID) 10/27/2003 [facility] ADMINISTRATION OF INFLUENZA VIRUS VACCINE WHEN NO PHYSICIAN FEE SCHEDULE SERVICE ON THE SAME DAY 07/11/2003 [facility] FUNDUS PHOTOGRAPHY WITH INTERPRETATION AND REPORT 06/24/2003 [facility] PATIENT EDUCATION, NOT OTHERWISE CLASSIFIED, NON-PHYSICIAN PROVIDER, INDIVIDUAL, PER SESSION 02/10/2003 [facility] INDIVIDUAL PSYCHOTHERAPY, INSIGHT ORIENTED, BEHAVIOR MODIFYING AND/OR SUPPORTIVE, IN AN OFFICE OR OUTPATIENT FACILITY, APPROXIMATELY 20 TO 30 MINUTES [id number] W THE PATIENT; W MED EVAL & MGT SER 12/29/2002 [facility] PREPARATION OF REPORT OF PATIENT'S PSYCHIATRIC STATUS, HISTORY, TREATMENT, OR PROGRESS (OTHER THAN FOR LEGAL OR CONSULTATIVE PURPOSES) FOR OTHER INDIVIDUALS, AGENCIES, OR INSURANCE CARRIERS 12/21/2002 DoD SKIN TEST; UNLISTED ANTIGEN, EACH 11/06/2002 DoD SKIN TEST; TUBERCULOSIS, INTRADERMAL 11/04/2002 [facility] RETAINER CROWN - 3/4 CAST HIGH WINTERS METAL 02/23/2002 [facility] ADMINISTRATION SET, WITH SMALL VOLUME FILTERED PNEUMATIC NEBULIZER 01/12/2002 [facility] VASECTOMY, UNILATERAL OR BILATERAL (SEPARATE PROCEDURE), INCLUDING POSTOPERATIVE SEMEN EXAM(S) 12/23/2001 DoD PHYS/OTH QUALIFIED HEALTH ADULT SECONDARY EDUCATION INSTRUCTOR QUALIFIED,EDUCATION,T RAIN,LICENSURE/REGULA TION (WHEN APPLICABLE) EDUC SER RENDERED TO PATS IN A GRP SETTING (EG,,OBESITY, OR DIABETIC INSTRUCT) 10/17/2001 [facility] PHYS/OTH QUALIFIED HEALTH ADULT SECONDARY EDUCATION INSTRUCTOR QUALIFIED,EDUCATION,T RAIN,LICENSURE/REGULA TION (WHEN APPLICABLE) EDUC SER RENDERED TO PATS IN A GRP SETTING (EG,,OBESITY, OR DIABETIC INSTRUCT) 05/12/2001 DoD Social History Combined list of available smoking, tobacco, and other social history from Department of Defense and Veterans Affairs facilities. Social History Type Response Date Comment Sourc e This section is an empty social history section. DoD Assessment and Plan Combined list of future care activities from Department of Defense and Veterans Affairs facilities (e.g., assessment and plan notes, appointments, orders, and referrals). Additional future care activities may be listed in the Plan of Care section. Result Assessment and Plan Date Source Assessment and Plan No data available for this section 12/15/2024 Ambulatory Pharmacy Functional Status Combined list of recent functional and cognitive assessments recorded at Department of Defense and Veterans Affairs ([facility]).VA Functional Clark Measurement (FIM) Scale: 1 = Total Assistance (Subject = 0% +), 2 = Maximal Assistance (Subject = 25% +), 3 = Moderate Assistance (Subject = 50% +), 4 = Minimal Assistance (Subject = 75% +), 5 = Supervision, 6 = Modified Clark (Device), 7 = Complete Clark (Timely, Safely). Assessment Date/Time Source Assessment Type Assessment Skill Assessment Score Assessment Details No data available for this section
--- OUTSIDE RECORDS SUMMARY | 2024-12-15 10:19 | XMS_ITS | Clinical Summary ---
Author Organization [facility] Address [facility] [place] [address] Care Team Providers Care Asic Verification Engineer Name Role Phone Kt Sheldon MD Primary Care Provider [phone] Encounters Date Type Department Care Team Description 10/08/2024 3:16 PM INFORMATION SYSTEMS SECURITY SPECIALIST - 10/08/2024 11:59 PM INFORMATION SYSTEMS SECURITY SPECIALIST Hospital Encounter [facility] MRI [address] [place] [address] Pablito Mike MD Discharge Disposition: Home or Self Care (Routine Discharge) 10/08/2024 Travel 10/05/2024 Travel from Last 3 Months Social History Tobacco Use Types Packs/Day Years Used Date Smoking Tobacco: Never Assessed Sex and Gender Information Value Date Recorded Sex Assigned at Male 10/05/2024 10:52 AM INFORMATION SYSTEMS SECURITY SPECIALIST Legal Sex Male 3:16 PM INFORMATION SYSTEMS SECURITY SPECIALIST Gender Identity Not on file Sexual Orientation Not on file Plan of Treatment Health Maintenance Due Date Last Done Comments Colorectal Cancer Screening Colonoscopy (10 Years) 1968 Annual Physical 1971 Hepatitis C 1986 Hepatitis B Vaccines (1 of 3 - 19+ 3-dose series) 1987 DTaP, Tdap and Td Vaccines (2 - Td or Tdap) 06/01/2018 06/01/2008, 12/09/1997, 10/09/1997 Pneumococcal Vaccine: 50+ Years (1 of 1 - PCV) 2018 Zoster Vaccines Completed 07/13/2023, 05/10/2023 COVID-19 Vaccine Completed 05/07/2024, , 04/27/2023, Additional history exists Meningococcal B Vaccine Aged Out No l onger eligible based on patient's age to complete this topic Meningococcal Vaccine Aged Out No aylin jerrica eligible based on patient's age to complete this topic RSV Immunizations Under 20 Months Aged Out No longer eligible based on patient's age to complete this topic Procedures Procedure Name Priority Date/Time Associated Diagnosis Comments MRI SHOULDER LT WO CON Routine 10/08/2024 4:08 PM INFORMATION SYSTEMS SECURITY SPECIALIST Pain in left shoulder MRI SHOULDER RT WO CON Routine 10/08/2024 3:58 PM INFORMATION SYSTEMS SECURITY SPECIALIST Impingement syndrome of right shoulder from Last 3 Months Results * MRI SHOULDER LT WO CON (10/08/2024 4:08 PM INFORMATION SYSTEMS SECURITY SPECIALIST) Anatomical Region Laterality Modality Shoulder Magnetic Resonan ce 10/08/2024 8:17 PM INFORMATION SYSTEMS SECURITY SPECIALIST Impressions 10/08/2024 8:20 PM INFORMATION SYSTEMS SECURITY SPECIALIST IMPRESSION: 1. Partial articular sided tear of the insertion of infraspinatus measures 3 mm and involves approximately 20% tendon thickness. 2. No high-grade or full-thickness tear is identified. 3. Bursal sided fraying of supraspinatus. 4. No evidence of labral tear. 5. Findings concerning for subacromial impingement, including spurring and narrowing and moderate bursitis. 6. Acromioclavicular osteoarthritis and joint effusion. Referred By: PABLITO MIKE Interpreted By: Jaylen Mosqueda MD, 10/08/2024 8:17 PM Narrative 10/08/2024 8:20 PM INFORMATION SYSTEMS SECURITY SPECIALIST [facility] [place] [address] EXAMINATION: MRI LEFT SHOULDER WITHOUT CONTRAST EXAM DATE: 10/08/2024 11:30 AM REASON FOR EXAM: Left shoulder pain and decreased range of motion COMPARISON: None TECHNIQUE: Multisequence multiplanar imaging of the shoulder without intravenous contrast. FINDINGS: Mild soft tissue swelling surrounding the joint. ROTATOR CUFF: No evidence of rotator cuff or deltoid atrophy. Partial articular sided tear of the insertion of infraspinatus measures 3 mm and involves approximately 20% tendon thickness. No high-grade or full-thickness tear is identified. Bursal sided fraying of supraspinatus. BICEPS: Long head biceps anatomically positioned in the intertubercular groove. LABRUM: No evidence of labral tear. ACROMIOCLAVICULAR: Osteoarthritis and joint effusion. Subacromial spurring and narrowing and moderate bursitis concerning for impingement. GLENOHUMERAL: No joint effusion or full-thickness cartilage loss is identified. BONES: No evidence of fracture or suspicious bone lesion. Procedure Note Jaylen Mosqueda MD - 10/08/[address] [address] EXAMINATION: MRI LEFT SHOULDER WITHOUT CONTRAST EXAM DATE: 10/08/2024 11:30 AM REASON FOR EXAM: Left shoulder pain and decreased range of motion COMPARISON: None TECHNIQUE: Multisequence multiplanar imaging of the shoulder withoutintravenous contrast. FINDINGS: Mild soft tissue swelling surrounding the joint. ROTATOR CUFF: No evidence of rotator cuff or deltoid atrophy. Partial articular sided tear of the insertion of infraspinatus measures 3mm and involves approximately 20% tendon thickness. No high-grade or full-thickness tear is identified. Bursal sided fraying of supraspinatus. BICEPS: Long head biceps anatomically positioned in the intertubercular groove. LABRUM: No evidence of labral tear. ACROMIOCLAVICULAR: Osteoarthritis and joint effusion. Subacromial spurring and narrowing andmoderate bursitis concerning for impingement. GLENOHUMERAL: No joint effusion or full-thickness cartilage loss is identified. BONES: No evidence of fracture or suspicious bone lesion. IMPRESSION: 1. Partial articular sided tear of the insertion of infraspinatusmeasures 3 mm and involves approximately 20% tendon thickness. 2. No high-grade or full-thickness tear is identified. 3. Bursal sided fraying of supraspinatus. 4. No evidence of labral tear. 5. Findings concerning for subacromial impingement, including spurringand narrowing and moderate bursitis. 6. Acromioclavicular osteoarthritis and joint effusion. Referred By: PABLITO P SHEPPERSON Interpreted By: Jaylen Mosqueda MD, 10/08/2024 8:17 PM us Pablito Mike MD MRI Final Resul t * MRI SHOULDER RT WO CON (10/08/2024 3:58 PM INFORMATION SYSTEMS SECURITY SPECIALIST) Anatomical Region Laterality Modality Shoulder Magnetic Resonan ce 10/08/2024 8:20 PM INFORMATION SYSTEMS SECURITY SPECIALIST Impressions 10/08/2024 8:24 PM INFORMATION SYSTEMS SECURITY SPECIALIST IMPRESSION: 1. Partial articular sided tear at the insertion of supraspinatus measures 4 x 5 mm and involves approximately 20% tendon thickness. 2. No high-grade or full-thickness rotator cuff tear is identified. 3. No evidence of labral tear. 4. Findings concerning for subacromial impingement, including spurring and narrowing and moderate bursitis. 5. Acromioclavicular osteoarthritis. Referred By: PABLITO MIKE Interpreted By: Jaylen Mosqueda MD, 10/08/2024 8:20 PM Narrative 10/08/2024 8:24 PM INFORMATION SYSTEMS SECURITY SPECIALIST [address] [address] EXAMINATION: MRI RIGHT SHOULDER WITHOUT CONTRAST EXAM DATE: 10/08/2024 3:35 PM REASON FOR EXAM: Right shoulder pain and decreased range of motion. COMPARISON: None TECHNIQUE: Multisequence multiplanar imaging of the shoulder without intravenous contrast. FINDINGS: Moderate soft tissue swelling surrounding the joint. ROTATOR CUFF: No evidence of significant rotator cuff or deltoid atrophy. Bursal sided fraying of supraspinatus. Partial articular sided tear at the insertion of supraspinatus measures 4 mm in AP dimension, 5 mm medial to lateral, and involves approximately 20% tendon thickness. No high-grade or full-thickness rotator cuff tear is identified BICEPS: Long head biceps anatomically positioned in the intertubercular groove. LABRUM: No evidence of labral tear. ACROMIOCLAVICULAR: Osteoarthritis. Subacromial spurring and narrowing and moderate bursitis concerning for impingement. GLENOHUMERAL: No joint effusion or full-thickness cartilage loss is identified. BONES: No evidence of fracture or suspicious bone lesion. Procedure Note Jaylen Mosqueda MD - 10/08/[address] [place] [id number] [place] [address] EXAMINATION: MRI RIGHT SHOULDER WITHOUT CONTRAST EXAM DATE: 10/08/2024 3:35 PM REASON FOR EXAM: Right shoulder pain and decreased range of motion. COMPARISON: None TECHNIQUE: Multisequence multiplanar imaging of the shoulder withoutintravenous contrast. FINDINGS: Moderate soft tissue swelling surrounding the joint. ROTATOR CUFF: No evidence of significant rotator cuff or deltoid atrophy. Bursal sided fraying of supraspinatus. Partial articular sided tear at the insertion of supraspinatus measures 4mm in AP dimension, 5 mm medial to lateral, and involves approximately 20%tendon thickness. No high-grade or full-thickness rotator cuff tear is identified BICEPS: Long head biceps anatomically positioned in the intertubercular groove. LABRUM: No evidence of labral tear. ACROMIOCLAVICULAR: Osteoarthritis. Subacromial spurring and narrowing and moderate bursitisconcerning for impingement. GLENOHUMERAL: No joint effusion or full-thickness cartilage loss is identified. BONES: No evidence of fracture or suspicious bone lesion. IMPRESSION: 1. Partial articular sided tear at the insertion of supraspinatusmeasures 4 x 5 mm and involves approximately 20% tendon thickness. 2. No high-grade or full-thickness rotator cuff tear is identified. 3. No evidence of labral tear. 4. Findings concerning for subacromial impingement, including spurringand narrowing and moderate bursitis. 5. Acromioclavicular osteoarthritis. Referred By: PABLITO MIKE Interpreted By: Jaylen Mosqueda MD, 10/08/2024 8:20 PM us Pablito Mike MD MRI Final Resul t from Last 3 Months Insurance Care Teams Asic Verification Engineer Relationship Specialty Start Date End Date Kt Sheldon MD [address] [facility] [address] [place] [address] PCP - General FAMILY PRACTICE 10/01/24
== END 2024-12-15 10:05 | disposition home or self-care (01) ==
PROVIDERS: PCP Family Medicine
DX: M54.89 Other dorsalgia (principal)
CPT/HCPCS: 72100